=== PATIENT | female | born 1960 | race Hispanic/Latino ===

== ENCOUNTER → 2017-09-05 | Outpatient (CLI) | payer MEDICAID | END | disposition home or self-care (01) | LOC: OIH 13:29 | PROVIDERS: ATTEND Internal Medicine Cardiovascular Disease | DX: I10 Essential (primary) hypertension (principal) | CPT/HCPCS: 93306 ==

== ENCOUNTER 2021-11-10 08:57 | Day surgery (SDC) | payer MEDICAID ==
[2021-11-08 10:54] LABS: BASOPHILS % (AUTO) 0.3 % (0.0-5.0); EOSINOPHILS % (AUTO) 2.3 % (0.0-8.0); HEMATOCRIT 42.1 % (36-48); LYMPHOCYTES % (AUTO) 23.8 % (21.0-51.0); MEAN CORPUSCULAR HEMOGLOBIN 27.3 pg (27.0-33.0); MEAN CORPUSCULAR HGB CONC 31.8 g/dL (32.0-36.0); MEAN CORPUSCULAR VOLUME 85.9 fL (79-99); MONOCYTES % (AUTO) 7.5 % (3.0-13.0); NEUTROPHILS % (AUTO) 65.7 % (40.0-77.0); PLATELET COUNT (AUTO) 299 K/uL (130-400); RED CELL DISTRIBUTION WIDTH 13.8 % (11.0-15.5); WHITE BLOOD COUNT (AUTO) 11.7 K/uL (4.8-10.8)
[2021-11-08 10:55] LABS: BILIRUBIN,URINE Negative (NEGATIVE); COLOR,URINE Yellow (YELLOW); GLUCOSE, URINE (UA) Negative (NEGATIVE); KETONES,URINE Trace mg/dL (NEGATIVE); LEUKOCYTE ESTERASE ,URINE Negative (NEGATIVE); NITRATE,URINE Negative (NEGATIVE); OCCULT BLOOD,URINE Negative (NEGATIVE); PH,URINE 5.5 (5.0-8.0); PROTEIN,URINE Trace mg/dL (NEGATIVE)
[2021-11-08 11:03] LABS: APPEARANCE,URINE CLOUDY (CLEAR)
[2021-11-08 11:09] LABS: AMORPHOUS SEDIMENT,UR Few /LPF (None Seen); BACTERIA,URINE Rare /HPF (None Seen); CREATININE 0.8 mg/dL (0.5-1.5); POTASSIUM 4.1 mmol/L (3.5-5.1); RBC,URINE 0-1 /HPF (0-1); SQUAMOUS EPITHELIAL CELL,UR Few /HPF (0-2); WBC,URINE 0-1 /HPF (0-1)
[2021-11-08 11:11] LABS: INR 0.94 (0.85-1.15); PROTHROMBIN TIME 10.3 SEC (9.6-11.6)
[2021-11-08 11:45] LABS: B-TYPE NATRIURETIC PEPTIDE 61 pg/mL (0-100)
[2021-11-09 12:53] VITALS: BP 149/67
[2021-11-10] VITALS (8 sets, daily range): BP systolic 131–198; BP diastolic 54–78
[~2021-11-10] VITALS: Ht 157.5 cm; Wt 91.9 kg
[~2021-11-10 08:57] MED LIST: 0.9% NACL 500ML IV.SOLN 500 ML IV SCH; AEC81 PO; FERR-82 PO; FOLIC ACID PO; GABA-529 PO; INSU100V12 SQ; INSU3INS5 SQ; LEVO137T2 PO; LOSA100T58 PO; METF-446 PO; METO-408 PO; NIFE-40 PO; ROSU20TA31 PO; SERT-439 PO; VITAMIN B12 PO
[2021-11-10] MEDS ORDERED: 0.9%NACL 1000ML 1,000 ML IV ONE (09:13)
[2021-11-10] MEDS ORDERED: NICARDIPINE 25MG INJ IV ONE (11:45)
[2021-11-10] MEDS ORDERED: NITROGLYCERIN 50MG VIAL ONE (11:46)
[2021-11-10] MEDS ORDERED: IOHEXOL 350 MG/ML 100ML INFUS..BTL IV ONE (11:46)
[2021-11-10] MEDS ORDERED: LIDOCAINE HCL 1% 10 ML VIAL ONE (11:46)
[2021-11-10] MEDS ORDERED: IOHEXOL-350 50ML VIAL IV ONE (11:46)
[2021-11-10] MEDS ORDERED: MIDAZOLAM HCL 1 MG/ML 2ML VIAL ONE (11:53)
[2021-11-10] MEDS ORDERED: FENTANYL CITRATE PF 50 MCG/1 ML 2ML VIAL ONE (11:53)
[2021-11-10] MEDS ORDERED: 0.9% NACL 500ML IV.SOLN 500 ML IV SCH (13:00)
== END 2021-11-10 16:05 | disposition home or self-care (01) ==
LOC: DAH 08:57
PROVIDERS: ATTEND Internal Medicine Cardiovascular Disease
DX: I25.119 Atherosclerotic heart disease of native coronary artery with unspecified angina pectoris (principal); I48.0 Paroxysmal atrial fibrillation; I10 Essential (primary) hypertension; E11.59 Type 2 diabetes mellitus with other circulatory complications; F32.A Depression, unspecified; E78.5 Hyperlipidemia, unspecified; E03.9 Hypothyroidism, unspecified; E66.9 Obesity, unspecified; Z79.82 Long term (current) use of aspirin; Z79.01 Long term (current) use of anticoagulants; Z79.890 Hormone replacement therapy; Z79.4 Long term (current) use of insulin; Z86.73 Personal history of transient ischemic attack (TIA), and cerebral infarction without residual deficits; Z79.899 Other long term (current) drug therapy; Z98.890 Other specified postprocedural states; Z72.89 Other problems related to lifestyle; Z68.37 Body mass index [BMI] 37.0-37.9, adult
CPT/HCPCS: 36415; 71045; 80048; 81001; 82948; 83880; 85025; 85610; 85730; 93005; 93454; 96360; 96361; A4215; A4216; A4221; A4222; A4223 ×3; A4606; A4663; C1769; C1894; J1644; J2250; J3010; J3490 ×3; J7030; Q9965; Q9967; 99156; 99157

== ENCOUNTER 2025-06-03 07:15 | Day surgery (SDC) | payer MEDICARE ==
[~2025-06-03] VITALS: Ht 154.9 cm; Wt 94.3 kg
[2025-06-03] VITALS (12 sets, daily range): BP systolic 138–196; BP diastolic 47–66; PULSE 60–72; RESP 15–18; TEMP 97.1–97.6
[~2025-06-03 07:15] MED LIST changes: -0.9% NACL 500ML IV.SOLN 500 ML IV SCH; -LOSA100T58 PO; +LOSA100T59 PO; -ROSU20TA31 PO; +ROSU20TA98 PO
[2025-06-03] MEDS ORDERED: 0.9%NACL 1000ML 1,000 ML IV ONE (12:15)
[2025-06-03] MEDS ORDERED: TIRZ15PE SQ (12:28)
[2025-06-03] MEDS ORDERED: GABA-529 PO (12:28)
[2025-06-03] MEDS ORDERED: EMPA25TA PO (12:28)
[2025-06-03] MEDS ORDERED: LEVO150C5 PO (12:28)
[2025-06-03] MEDS ORDERED: INSU3INS3 SQ (12:28)
[2025-06-03] MEDS ORDERED: ATOR20TA65 PO (12:28)
[2025-06-03] MEDS ORDERED: CARV25TA PO (12:28)
[2025-06-03 13:20] LABS: IMMATURE GRANULOCYTE ABSOLUTE 0.05 K/uL (0-1); NUCLEATED RED BLOOD CELLS 0.0 % (0.0-0.19); PLATELET COUNT (AUTO) 212 K/uL (130-400); RED BLOOD CELL COUNT(AUTO) 4.51 MIL/uL (4.00-5.50); RED CELL DISTRIBUTION WIDTH 15.2 % (11.0-15.5); WHITE BLOOD COUNT (AUTO) 9.9 K/uL (4.8-10.8)
[2025-06-03 13:31] LABS: CREATININE 1.3 mg/dL (0.5-1.0); GLOMERULAR FILTR. RATE CALC 46.0 mL/min (>90); GLUCOSE,RANDOM 187.0 mg/dL (70-105); SODIUM SERUM 139.0 mmol/L (136-145); UREA NITROGEN, BLOOD 21.0 mg/dL (7-18)
[2025-06-03] MEDS ORDERED: SUCCINYLCHOLINE CHLORIDE 20 MG/ML 10 ML VIAL ONE (14:06)
[2025-06-03] MEDS ORDERED: LIDOCAINE PF 100MG/5ML (2%) SYRINGE 5ML ONE (14:06)
--- NOTE | 2025-06-09 14:00 | EKG ---
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
== END 2025-06-03 16:02 | disposition home or self-care (01) ==
LOC: DAH 07:15 → ENDO 07:15
PROVIDERS: ATTEND Internal Medicine Gastroenterology
DX: R19.5 Other fecal abnormalities (principal); K29.50 Unspecified chronic gastritis without bleeding; K21.00 Gastro-esophageal reflux disease with esophagitis, without bleeding; K64.0 First degree hemorrhoids; K57.30 Diverticulosis of large intestine without perforation or abscess without bleeding; E78.5 Hyperlipidemia, unspecified; K44.9 Diaphragmatic hernia without obstruction or gangrene; I25.10 Atherosclerotic heart disease of native coronary artery without angina pectoris; M06.9 Rheumatoid arthritis, unspecified; I12.9 Hypertensive chronic kidney disease with stage 1 through stage 4 chronic kidney disease, or unspecified chronic kidney disease; E11.22 Type 2 diabetes mellitus with diabetic chronic kidney disease; N18.9 Chronic kidney disease, unspecified; Z88.6 Allergy status to analgesic agent; G47.33 Obstructive sleep apnea (adult) (pediatric); K76.0 Fatty (change of) liver, not elsewhere classified; R93.2 Abnormal findings on diagnostic imaging of liver and biliary tract; Z86.0100 Personal history of colon polyps, unspecified; Z99.89 Dependence on other enabling machines and devices; Z96.653 Presence of artificial knee joint, bilateral; Z83.719 Family history of colon polyps, unspecified; Z79.84 Long term (current) use of oral hypoglycemic drugs; Z79.82 Long term (current) use of aspirin; Z79.899 Other long term (current) drug therapy
CPT/HCPCS: 80048; 85025; 82948 ×3; 36415; 88305; 88312; 43239; 45378; 93005; J0330; J7030 ×2; J2003; J0360; J2704; J3490; A4620; A4215 ×2; A4223; A4657; A7002; A4222; A4221; A4663; A4606